=== PATIENT | female | born 1960 | race Caucasian/White ===

== ENCOUNTER 2018-04-20 20:43 | Emergency (ER) | payer BC, OTHER ==
[2018-04-20 20:51] VITALS: BP 163/101; PULSE 102; TEMP 98.7; BMI 22.3
[2018-04-20] MEDS ORDERED: ONDANSETRON 4 MG/2 ML VIAL IVPUSH ONE (22:52)
[2018-04-20] MEDS ORDERED: SODIUM CHLORIDE 1,000 ML IV STA (22:52)
[2018-04-20] MEDS ORDERED: morphine CARPU-JECT 4 MG/1 ML DISP.SYRIN IVPUSH ONE (22:52)
[2018-04-20] MEDS ORDERED: morphine SULFATE 4 MG/ML VIAL ONE (23:53)
[2018-04-20] MEDS ORDERED: ONDANSETRON 4 MG/2 ML VIAL ONE (23:53)
[2018-04-21 00:02] LABS: URINE APPEARANCE SLCLOUDY; URINE BILIRUBIN NEGATIVE (<2.0 mg/dL); URINE COLOR YELLOW; URINE GLUCOSE (UA) NEGATIVE (NEGATIVE); URINE KETONE TRACE (NEGATIVE); URINE LEUK ESTERASE NEGATIVE (NEGATIVE); URINE NITRITE NEGATIVE (NEGATIVE); URINE PROTEIN 3+ (NEGATIVE)
[2018-04-21 00:09] LABS: EPI CELLS MODERATE /HPF (FEW); URINE MUCUS MANY
[2018-04-21 00:28] LABS: ALBUMIN 3.9 g/dl (3.4-5.0); ALK PHOS 102 U/L (45-117); ANION GAP 8 MMOL/L (8-16); BILIRUBIN,TOTAL 0.8 mg/dL (0.2-1); BLOOD UREA NITROGEN 25 mg/dL (7-18); CALCIUM 9.7 mg/dL (8.5-10.1); CHLORIDE 100 mmol/L (98-107); CO2 28 mmol/L (21-32); CREATININE 0.7 mg/dL (0.55-1.3); GLUCOSE,RANDOM 100 mg/dL (74-106); LIPASE 134 U/L (73-393); POTASSIUM 3.6 mmol/L (3.5-5.1); SGOT/AST 78 U/L (15-37); SGPT/ALT 57 U/L (13-61); SODIUM 136 mmol/L (136-145); TOT PROT 7.9 g/dl (6.4-8.2)
[2018-04-21 00:41] LABS: BASO % 1.3 % (0-2.0); EOS % 1.3 % (0-4.5); HEMATOCRIT 42.7 % (32.4-45.2); HEMOGLOBIN 15.3 GM/dL (10.7-15.3); LYMPH % 22.7 % (8-40); MCH 36.9 pg (25.7-33.7); MCHC 35.9 g/dl (32.0-36.0); MEAN CELL VOLUME 102.6 fl (80-96); MEAN PLT VOLUME 8.3 fl (7.5-11.1); MONO % 8.2 % (3.8-10.2); NEUT % 66.5 % (42.8-82.8); PLATELET COUNT 288 K/MM3 (134-434); RBC 4.16 M/mm3 (3.60-5.2); RDW 14.4 % (11.6-15.6); WHITE BLOOD COUNT 13.2 K/mm3 (4.0-10.0)
--- NOTE | 2018-04-21 00:42 | PDOC ---
History of Present Illness <Ludivina Herron - Last Filed: 04/21/18 03:25> - General History Source: Patient Exam Limitations: No Limitations <IrmaCassie - Last Filed: 04/21/18 03:46> - General Chief Complaint: Pain Stated Complaint: abdominal pain Time Seen by Provider: 04/20/18 22:33 Past History <Ludivina Herron - Last Filed: 04/21/18 03:25> - Past Medical History COPD: No GI Disorders: Yes (diverticulitis) - Surgical History Abdominal Surgery: Yes (11 inches of clon removed) - Suicide/Smoking/Psychosocial Hx Smoking History: Current every day smoker Number of Cigarettes Smoked Daily: 20 Information on smoking cessation initiated: No <Irma,Cassie - Last Filed: 04/21/18 03:46> - Past Medical History Allergies/Adverse Reactions: Allergies Allergy/AdvReac Type Severity Reaction Status Date / Time No Known Allergies Allergy Unverified 04/20/18 20:50 *Physical Exam - Vital Signs Last Vital Signs Temp Pulse Resp BP Pulse Ox 98.7 F 102 H 18 163/101 H 99 04/20/18 20:46 04/20/18 20:46 04/20/18 20:46 04/20/18 20:46 04/20/18 20:46 <Ludivina Herron - Last Filed: 04/21/18 03:25> - Vital Signs Last Vital Signs Temp Pulse Resp BP Pulse Ox 98.7 F 102 H 18 163/101 H 99 04/20/18 20:46 04/20/18 20:46 04/20/18 20:46 04/20/18 20:46 04/20/18 20:46 - Physical Exam General Appearance: No: Apparent Distress Respiratory/Chest: positive: Lungs Clear, Normal Breath Sounds. negative: Respiratory Distress Cardiovascular: positive: Regular Rhythm, Regular Rate, S1, S2. negative: Murmur Gastrointestinal/Abdominal: positive: Other (slightly decreased BS, generalized abd TTP, no rebounding, no distension, no rigidity). negative: Distended, Guarding, Hernia, Mass Integumentary: positive: Normal Color Neurologic: positive: Alert, Normal Mood/Affect <IrmaCassie - Last Filed: 04/21/18 03:46> Moderate Sedation - Procedure Monitoring Vital Signs: Procedure Monitoring Vital Signs Temperature 98.7 F 04/20/18 20:46 Pulse Rate 102 H 04/20/18 20:46 Respiratory Rate 18 04/20/18 20:46 Blood Pressure 163/101 H 04/20/18 20:46 O2 Sat by Pulse Oximetry (%) 99 04/20/18 20:46 <Ludivina Herron - Last Filed: 04/21/18 03:25> - Procedure Monitoring Vital Signs: Procedure Monitoring Vital Signs Temperature 98.7 F 04/20/18 20:46 Pulse Rate 102 H 04/20/18 20:46 Respiratory Rate 18 04/20/18 20:46 Blood Pressure 163/101 H 04/20/18 20:46 O2 Sat by Pulse Oximetry (%) 99 04/20/18 20:46 <Cassie Solis - Last Filed: 04/21/18 03:46> ED Treatment Course - LABORATORY CBC & Chemistry Diagram: 04/20/18 23:50 04/20/18 23:50 - ADDITIONAL ORDERS Additional order review: Laboratory Results 04/20/18 04/20/18 23:50 23:50 Sodium 136 Potassium 3.6 Chloride 100 Carbon Dioxide 28 Anion Gap 8 BUN 25 H Creatinine 0.7 Creat Clearance w eGFR > 60 Random Glucose 100 Calcium 9.7 Total Bilirubin 0.8 AST 78 H ALT 57 Alkaline Phosphatase 102 Total Protein 7.9 Albumin 3.9 Lipase 134 Urine Color Yellow Urine Appearance Slcloudy Urine pH 5.0 Ur Specific Homer 1.032 Urine Protein 3+ H Urine Glucose (UA) Negative Urine Ketones Trace H Urine Blood 2+ H Urine Nitrite Negative Urine Bilirubin Negative Urine Urobilinogen 2.0 H Ur Leukocyte Esterase Negative Urine WBC (Auto) 3 Urine RBC (Auto) 40 Ur Epithelial Cells Moderate Urine Mucus Many 04/20/18 23:50 RBC 4.16 MCV 102.6 H MCHC 35.9 RDW 14.4 MPV 8.3 Neutrophils % 66.5 Lymphocytes % 22.7 Monocytes % 8.2 Eosinophils % 1.3 Basophils % 1.3 - Medications Given in the ED: ED Medications Discontinued Medications Generic Name Dose Route Start Last Admin Trade Name Freq PRN Reason Stop Dose Admin Sodium Chloride 1,000 mls @ 1,000 mls/hr 04/20/18 22:52 04/21/18 00:03 Normal Saline - IV 04/20/18 23:51 1,000 mls/hr ASDIR STA Administration Morphine Sulfate 4 mg 04/20/18 22:52 04/21/18 00:03 Morphine Injection - IVPUSH 04/20/18 22:53 4 mg ONCE ONE Administration Ondansetron HCl 4 mg 04/20/18 22:52 04/21/18 00:04 Zofran Injection IVPUSH 04/20/18 22:53 4 mg ONCE ONE Administration <Ludivina Herron - Last Filed: 04/21/18 03:25> - LABORATORY CBC & Chemistry Diagram: 04/20/18 23:50 04/20/18 23:50 - ADDITIONAL ORDERS Additional order review: Laboratory Results 04/20/18 04/20/18 23:50 23:50 Sodium 136 Potassium 3.6 Chloride 100 Carbon Dioxide 28 Anion Gap 8 BUN 25 H Creatinine 0.7 Creat Clearance w eGFR > 60 Random Glucose 100 Calcium 9.7 Total Bilirubin 0.8 AST 78 H ALT 57 Alkaline Phosphatase 102 Total Protein 7.9 Albumin 3.9 Lipase 134 Urine Color Yellow Urine Appearance Slcloudy Urine pH 5.0 Ur Specific Homer 1.032 Urine Protein 3+ H Urine Glucose (UA) Negative Urine Ketones Trace H Urine Blood 2+ H Urine Nitrite Negative Urine Bilirubin Negative Urine Urobilinogen 2.0 H Ur Leukocyte Esterase Negative Urine WBC (Auto) 3 Urine RBC (Auto) 40 Ur Epithelial Cells Moderate Urine Mucus Many - RADIOLOGY Radiology Studies Ordered: Category Date Time Status ABDOMEN & PELVIS CT WITH CONTR [CT] Stat CT Scan 04/20/18 23:00 Ordered - Medications Given in the ED: ED Medications Discontinued Medications Generic Name Dose Route Start Last Admin Trade Name Freq PRN Reason Stop Dose Admin Sodium Chloride 1,000 mls @ 1,000 mls/hr 04/20/18 22:52 04/21/18 00:03 Normal Saline - IV 04/20/18 23:51 1,000 mls/hr ASDIR STA Administration Morphine Sulfate 4 mg 04/20/18 22:52 04/21/18 00:03 Morphine Injection - IVPUSH 04/20/18 22:53 4 mg ONCE ONE Administration Ondansetron HCl 4 mg 04/20/18 22:52 04/21/18 00:04 Zofran Injection IVPUSH 04/20/18 22:53 4 mg ONCE ONE Administration <Cassie Solis - Last Filed: 04/21/18 03:46> Medical Decision Making - Medical Decision Making 04/21/18 03:25 Patient Name: LEIGH FUNG THIS IS A PRELIMINARY REPORT FROM [facility] DATE OF SERVICE: 2018-04-21 01:59:41 IMAGES: [id number] EXAM: CT abdomen and pelvis with IV contrast. Clinical indication: Rule out small bowel obstruction and colitis. There are no prior studies available for comparison. Technique: Oral contrast was administered followed by axial IV contrast- enhanced CT images of the abdomen and pelvis. Coronal and sagittal reformats were then performed. Findings: Visualized portions of the lower thorax are within normal limits. There is no free intra-abdominal gas or fluid. There is no hydronephrosis or renal calculi bilaterally. The bilateral kidneys are normal. There are no enlarged abdominal or pelvic lymph nodes, by size criteria. The urinary bladder is within normal limits. The visualized portions of the pelvic organs are grossly unremarkable, given limitations of CT for evaluating them. The appendix is normal. The remainder of the bowel is unremarkable The visualized bony structures are within normal limits for the patient's age. Impression: Unremarkable CT of the abdomen and pelvis. <Ludivina Herron - Last Filed: 04/21/18 03:25> - Medical Decision Making 57 y/o F with hx asthma, brain aneurysm, diverticulitis s/p partial colectomy ( around 2-3 years ago) presents with generalized abdominal pain, cramping, bloating x 2 days along with NBNB emesis and watery diarrhea. Initially, patient went to fast track who referred her to ED for further evaluation. Mentions having chills. Denies fever, sob, cp, urinary complaints, bloody stools. Consider colitis/SBO (though patient having bowel movements) Plan: Labs, IVF, Zofran, morphine, CT A/P 04/21/18 00:40 UA with small blood, 3+ protein CT A/P negative Patient feeling better on reassessment, is tolerating PO Stable for discharge 04/21/18 03:40 <Cassie Solis - Last Filed: 04/21/18 03:46> *DC/Admit/Observation/Transfer <Ludivina Herron - Last Filed: 04/21/18 03:25> - Discharge Dispostion Decision to Admit order: No <Cassie Solis - Last Filed: 04/21/18 03:46> Diagnosis at time of Disposition: Gastroenteritis - Discharge Dispostion Disposition: HOME Condition at time of disposition: Improved - Referrals Referrals: Duc Clemens MD [Primary Care Provider] - 2 Days - Patient Instructions Printed Discharge Instructions: DI for Viral Gastroenteritis -- Adult Additional Instructions: Thank you for choosing [facility]. It was a pleasure taking care of you. Your CT scan was negative Likely you may have stomach bug Recommend hydration - at least 2L of water daily Eat light food like bananas, rice, applesauce, toast, plain yogurt, soup until feeling better You were incidentally noted to have small amount of blood and some protein in your urine Please follow-up with your doctor regarding these findings Return to the Emergency Department if your symptoms worsen or persist or have other concerning symptoms. - Post Discharge Activity
== END 2018-04-21 03:57 | disposition home or self-care (01) ==
LOC: JER 20:43
PROC: 3E033NZ Introduction of Analgesics, Hypnotics, Sedatives into Peripheral Vein, Percutaneous Approach (ICD-10-PCS; principal; 2018-04-20)
PROC: 3E033GC Introduction of Other Therapeutic Substance into Peripheral Vein, Percutaneous Approach (ICD-10-PCS; 2018-04-20)
DX: K52.9 Noninfective gastroenteritis and colitis, unspecified (principal); Z87.19 Personal history of other diseases of the digestive system; Z90.49 Acquired absence of other specified parts of digestive tract
CPT/HCPCS: 36415; 74177-TC; 80053; 81003; 81015; 83690; 85025; 99282-25; J7030

== ENCOUNTER 2020-10-18 15:24 | Observation (INO) | payer BC, OTHER ==
[2020-10-18 15:34] VITALS: TEMP 98.1; BMI 23.8
[2020-10-18] MEDS ORDERED: PANTOPRAZOLE SODIUM 40 MG VIAL IVPUSH ONE (16:08)
[2020-10-18] MEDS ORDERED: PANTOPRAZOLE SODIUM 40 MG VIAL ONE (16:38)
[2020-10-18 16:55] LABS: BASO % 1.4 % (0-2.0); EOS % 3.1 % (0-4.5); HEMATOCRIT 36.8 % (32.4-45.2); HEMOGLOBIN 13.2 GM/dL (10.7-15.3); LYMPH % 22.4 % (8-40); MCHC 35.8 g/dl (32.0-36.0); MEAN CELL VOLUME 103.1 fl (80-96); MONO % 8.8 % (3.8-10.2); NEUT % 64.3 % (42.8-82.8); PLATELET COUNT 300 10^3/uL (134-434); RBC 3.57 M/mm3 (3.60-5.2); RDW 13.4 % (11.6-15.6); WHITE BLOOD COUNT 11.8 K/mm3 (4.0-10.0)
[2020-10-18 17:03] LABS: INR 1.01 (0.83-1.09); PROTHROMBIN TIME (PATIENT) 12.4 SEC (9.7-13.0)
[2020-10-18 17:06] LABS: ACTIVATED PTT 28.2 SECONDS (25.2-36.5)
[2020-10-18 17:08] LABS: CHLORIDE 106 mmol/L (98-107); SODIUM 138 mmol/L (136-145)
[2020-10-18 17:10] LABS: CALCIUM 9.6 mg/dL (8.5-10.1)
[2020-10-18 17:11] LABS: ALBUMIN 3.6 g/dl (3.4-5.0); ANION GAP 8 MMOL/L (8-16); BLOOD UREA NITROGEN 12.6 mg/dL (7-18); CO2 25 mmol/L (21-32); GLUCOSE,RANDOM 92 mg/dL (74-106); MAGNESIUM 2.2 mg/dL (1.8-2.4)
[2020-10-18 17:14] LABS: CREATININE 0.7 mg/dL (0.55-1.3); SGOT/AST 72 U/L (15-37); SGPT/ALT 67 U/L (13-61)
[2020-10-18 17:16] LABS: BILIRUBIN,TOTAL 0.4 mg/dL (0.2-1); TOT PROT 7.4 g/dl (6.4-8.2)
[2020-10-18 17:17] LABS: ALK PHOS 100 U/L (45-117)
[2020-10-18] MEDS ORDERED: PANTOPRAZOLE SODIUM 80 MG in SODIUM CHLORIDE 100 ML IVPB SCH (18:30)
[2020-10-18 19:26] LABS: EPI CELLS 17 /uL (0-25.1); HYALINE CASTS 0 /uL (0-3.1); URINE APPEARANCE CLEAR; URINE BACTERIA 340 /uL (0-1359); URINE BILIRUBIN NEGATIVE (NEGATIVE); URINE COLOR YELLOW; URINE GLUCOSE (UA) NEGATIVE (NEGATIVE); URINE KETONE NEGATIVE (NEGATIVE); URINE LEUK ESTERASE NEGATIVE (NEGATIVE); URINE NITRITE NEGATIVE (NEGATIVE); URINE PROTEIN NEGATIVE (NEGATIVE); URINE RBC 3 /uL (0-23.9); URINE UROBILINOGEN 0.2 mg/dL (0.2-1.0); URINE WBC 17 /uL (0-25.8)
[2020-10-18 20:23] VITALS: BP 121/68; PULSE 74
== END 2020-10-18 20:23 | disposition home or self-care (01) ==
LOC: JER 15:24 → UNDOADMOB 17:54 → JERBED 17:54 → INTOOBSV 17:54 → JERBED 18:53 → UNDODISOB 20:23
PROVIDERS: ADMIT Internal Medicine; ATTEND Internal Medicine
PROC: 3E033GC Introduction of Other Therapeutic Substance into Peripheral Vein, Percutaneous Approach (ICD-10-PCS; principal; 2020-10-18)
DX: K29.21 Alcoholic gastritis with bleeding (principal); I10 Essential (primary) hypertension; E78.5 Hyperlipidemia, unspecified; F17.210 Nicotine dependence, cigarettes, uncomplicated
CPT/HCPCS: 36415; 71045-TC-FY; 80053; 81003; 82272; 82550; 83605; 83735; 84484; 85025; 85610; 85730; 86850; 86900; 86901; 87077; 87086; 93005; 93010; 99285-25; G0378